=== PATIENT | female | born 1990 | race Two or more races ===

== ENCOUNTER 2020-11-05 05:58 | Day surgery (SDC) | payer OTHER ==
[~2020-11-05 05:58] MED LIST: ADDERALL 10 MG10 MG; ALEGRA; ALLEGRA ALLERG180 MG PO; CLARINEX-D 11 BOTTLE; FIBERCON625 MG PO; IBU800 MG PO; MICROGESTIN FE1 EAC1 PO; [UNRECOGNIZED DRUG - OTHER]; [UNRECOGNIZED DRUG - OTHER] PO
== END 2020-11-05 18:55 | disposition home or self-care (01) ==
LOC: CIR.AMB 05:58
PROVIDERS: ATTEND Colon & Rectal Surgery
DX: K60.5 Anorectal fistula (principal); Z20.828 Contact with and (suspected) exposure to other viral communicable diseases

== ENCOUNTER 2021-01-21 06:46 | Day surgery (SDC) | payer OTHER | END 2021-01-21 13:30 | disposition home or self-care (01) | LOC: CIR.AMB 06:46 | PROVIDERS: ATTEND Colon & Rectal Surgery | DX: K60.5 Anorectal fistula (principal); Z20.822 Contact with and (suspected) exposure to COVID-19 ==